=== PATIENT | male | born 1985 | race African-American/Black ===

== ENCOUNTER 2016-10-16 04:00 | Emergency (ER) | payer SELFPAY ==
[~2016-10-16] VITALS: Ht 185.4 cm; Wt 99.8 kg
[2016-10-16] MEDS ORDERED: NKM (04:08)
--- NOTE | 2016-10-16 04:14 | Emergency Room Report ---
History of Present Illness General Chief Complaint: Laceration Source: Patient Present Illness HPI Is a 31-year-old male who is right-hand dominant. He presents with a laceration to his right thumb/right hand. This occurred just prior to arrival. He was using a knife to make a pen for his puppy. It got stuck and then bounce back and caused laceration to his hand. No other injury. Mild pain. Tetanus was only 2-3 months ago. No other complaint. Allergies: Coded Allergies: No Known Allergies (Unverified , 10/16/16) Patient History Past Medical History: see triage record, old chart reviewed Past Surgical History: other Pertinent Family History: none Social History: Reports: smoking Immunizations: UTD Reviewed Nursing Documentation: PMH: Agreed, PSxH: Agreed Nursing Documentation-PMH Past Medical History: No Stated History Review of Systems Eye: Denies: blurred vision, eye pain ENT: Denies: ear pain, nose congestion, throat swelling Respiratory: Denies: cough, shortness of breath Cardiovascular: Denies: chest pain, palpitations Gastrointestinal: Denies: abdominal pain, diarrhea, nausea, vomiting Musculoskeletal: Denies: back pain, joint pain Skin: Denies: rash Neurological: Denies: headache, numbness Endocrine: Denies: increased thirst, increased urine Hematologic/Lymphatic: Denies: easy bruising All Other Systems: negative except mentioned in HPI Physical Exam Vital Signs Date Time Temp Pulse Resp B/P Pulse Ox O2 Delivery O2 Flow Rate FiO2 10/16/16 04:05 98.2 78 16 125/71 96 Room Air vitals normal Sp02 EP Interpretation: reviewed, normal General Appearance: well appearing, no apparent distress, alert Head: normocephalic, atraumatic Eyes: bilateral eye EOMI, bilateral eye PERRL ENT: hearing grossly normal, normal pharynx Neck: full range of motion, supple, no meningismus Respiratory: chest non-tender, lungs clear, normal breath sounds Cardiovascular #1: regular rate, rhythm, no murmur Gastrointestinal: normal bowel sounds, non tender, no mass, no organomegaly, no bruit, non-distended Musculoskeletal: back normal, gait/station normal, normal range of motion, other - 2 cm laceration to the web space of the thumb of Right hand. Full Range of motion. No tendon laceration. No foreign body. Neurologic: alert, oriented x3 Psychiatric: mood/affect normal Skin: warm/dry Procedures Laceration/Wound Repair Laceration/Wound Repair : Consent: Verbal Wound Location: upper extremity Wound's Depth, Shape: linear, irregular, stellate Wound Length (cm): 2 Wound Explored: clean Irrigated w/ Saline (ccs): 1000 Betadine Prep?: No Anesthesia: Lidocaine w/ Epi Volume Anesthetic (ccs): 4 Wound Debrided: minimal Wound Repaired With: sutures Suture Size/Type: 4:0, proline Number of Sutures: 3 Layer Closure?: No Patient Tolerated: Well Complications: None Medical Decision Making Diagnostic Impression: Primary Impression: Laceration of hand Qualified Codes: S61.411A - Laceration without foreign body of right hand, initial encounter ER Course Patient with a laceration to the webspace of the right hand to the thumb and index finger. No foreign body. Low risk for infection. No tendon laceration. We'll discharge him. Last Vital Signs Date Time Temp Pulse Resp B/P Pulse Ox O2 Delivery O2 Flow Rate FiO2 10/16/16 04:05 98.2 78 16 125/71 96 Room Air Status: improved Disposition: HOME, SELF-CARE Condition: Stable Patient Instructions: Laceration Care, Adult Additional Instructions: Followup with your Dr. in 10-14 days. Suture out in 10-14 days. Return if worse. Return for evidence of infection. LAURI MCCALLUM M.D. Oct 16, 2016 04:14
[2016-10-16 04:20] VITALS: BP 125/71
[2016-10-16] MEDS ORDERED: Bacitracin Oint UD TOPIC ONE ×2 (04:29→04:30)
[2016-10-16 04:40] VITALS: BP 128/73
== END 2016-10-16 04:40 | disposition home or self-care (01) ==
LOC: EMR 04:13
DX: S61.411A Laceration without foreign body of right hand, initial encounter (principal); W26.0XXA Contact with knife, initial encounter; Y92.9 Unspecified place or not applicable; Y99.8 Other external cause status